=== PATIENT | female | born 1950 | race Caucasian/White ===

== ENCOUNTER 2016-08-19 11:28 | Observation (INO) ==
[2016-08-19] MEDS ORDERED: *HR* FentaNYL (PF) 100 MCG/2 ML VIAL IVP ONE (11:38)
--- NOTE | 2016-08-19 11:46 | Emergency Department Note ---
Disposition Clinical Impression: Hip pain, acute Qualifiers: Laterality: left Qualified Code(s): M25.552 - Pain in left hip Disposition: Admitted As Inpatient Condition: Good General Adult HPI - General Chief complaint: ED Fall Stated complaint: Fall Nursing Notes Reviewed: Yes Vital Signs Reviewed: Yes - History of Present Illness HPI Narrative: Female patient was ventilating on a treadmill whenever she tripped and fell. She states that her left leg went behind her. She is now having sharp pain in her left hip that radiates down to her left foot. Laying still makes the pain somewhat bearable however she is in pain even sitting in bed. She does splint the leg with her knee bent. She denies any loss of consciousness or striking her head. She is also complaining of left upper arm pain due to striking it on the fireplace. - Related Data Home Medications Medication Instructions Recorded Confirmed Atenolol [Tenormin] 25 mg PO DAILY 03/03/16 03/03/16 Colesevelam HCl [Welchol] 625 mg PO 1-2XD 03/03/16 03/03/16 Farxiga 5 mg PO DAILY 03/03/16 03/03/16 Fenofibrate [Fenofibrate] 200 mg PO DAILY 03/03/16 03/03/16 Gabapentin [Neurontin] 300 mg PO 2-4XD 03/03/16 03/03/16 Glimepiride [Amaryl] 4 mg PO DAILY 03/03/16 03/03/16 Lansoprazole [Prevacid] 30 mg PO DAILY 03/03/16 03/03/16 Allergies Allergy/AdvReac Type Severity Reaction Status Date / Time etodolac [From Lodine] Allergy Hives Verified 03/03/16 20:10 dulaglutide [From Trulicity] AdvReac "Pancreatit Verified 08/19/16 15:02 is" Review of Systems: Patient denies any recent illnesses or syncope. She denies any headaches or head trauma. She denies any neck pain or back pain. She is reporting left hip pain. She also reports left upper arm pain. She does report a fall today. She does not have a history of falls. She denies any shortness of breath or chest pain. She denies any abdominal pain nausea vomiting or diarrhea. She denies any urinary symptoms hematochezia melena or hematuria. She denies any swelling to any of her extremities. She denies any numbness or tingling to any of her extremities. All systems ED: reviewed and negative except as stated. Past Medical History - Past Medical History Attestation: Yes The following information was validated with the patient. Medical history: Reports: diabetes, hyperlipidemia, hypertension Surgical history: Reports: cholecystectomy, hysterectomy, sinus surgery Psychiatric history: Reports: no psych history ASSEMBLY MANAGER history: Reports: non-contributory - Social History Smoking Status: Never smoker Alcohol use: Reports: none Drug use: Reports: none Physical Exam - General Limitations: no limitations General appearance: alert, other (Patient appears in pain.) - Head Head exam: atraumatic, normocephalic, normal inspection - Eye Eye exam: Present: normal appearance, PERRL, EOMI. Absent: scleral icterus - ENT ENT exam: normal exam, normal oropharynx, mucous membranes moist - Neck Neck exam: Present: normal inspection, full ROM, trachea midline. Absent: tenderness (No tenderness on palpation or movement.) - Chest Chest inspection: Present: normal inspection, symmetric chest wall rise. Absent : tenderness, rash - Respiratory Respiratory exam: Present: normal lung sounds bilaterally. Absent: respiratory distress - Cardiovascular Cardiovascular exam: Present: regular rate, normal rhythm, normal heart sounds - Abdominal Exam Abdominal exam: Present: soft, Non-Tender, normal bowel sounds. Absent: tenderness, distention, guarding, rebound, rigidity, organomegaly - Expanded Upper Extremity Exam Shoulder exam: Present: normal inspection, full ROM Arm exam: Present: normal inspection, full ROM, ecchymosis (To inner left humerus.) Elbow exam: Present: normal inspection, full ROM Forearm/Wrist exam: Present: normal inspection, full ROM Hand exam: Present: normal inspection, full ROM Vascular exam: Normal: capillary refill, radial pulse - Expanded Lower Extremity Exam Hip/Pelvis exam: Present: normal inspection, full ROM Upper leg exam: Present: normal inspection, full ROM Knee exam: Present: normal inspection, full ROM Lower leg exam: Present: normal inspection, full ROM Ankle exam: Present: normal inspection, full ROM Foot/toe exam: Present: normal inspection, full ROM Neurovascular/Tendon exam: Present: normal capillary refill. Absent: pulse deficit, motor deficit, sensory deficit, tendon deficit Course Course Narrative: The patient was on a treadmill today. She states that her foot hit the side of the treadmill and she fell backwards. She denies striking her head. She denies any neck or back pain. She does report left hip pain. She holds it in a flexed position for comfort. She states the pain goes from her hip and shoots down to her leg. She denies any neck or back pain. There is no obvious deformity to her left hip. There is no shortening appreciated however patient is keeping her leg flexed and this is hard to examine.. Pedal pulses are present bilateral leg do not appreciate any bruising or deformity to her left hip or leg. She does have some bruising to the medial aspect of her left humerus area. Her left hip and left humerus x-ray were read as normal. However her left hip did have some shadowing on the femoral condyle. We subsequently CT her left hip and femur. These were normal. Patient is requesting minimal pain medication. Patient is mentating appropriately. - Reevaluation(s) Reevaluation #1: Patient's CT and x-ray showed no acute fracture. She is still complaining of pain in her left hip. We will get her up and a bili throughout the emergency department. Time: 13:56 Reevaluation #2: Patient reevaluated. We attempted to stand patient. She states that she is in too much pain trying to extend her hip. It appears that the pain is more in the piriformis area. She states that it radiates down the back of her leg. I will order Flexeril and attempt to relieve this muscle spasm. Time: 14:05 Reevaluation #3: Patient still in pain after 2 doses of narcotic pain medication and Flexeril. She is unable to extend her hip. We will admit patient for inability to extend her leg nonmobile. - Consultations Consultation #1: Dr. Ulloa admitted patient in stable condition. She requested for CBC and BMP. I have ordered this. Time: 14:45 Vital Signs Temperature 97.7 F 08/19/16 11:29 Pulse Rate 73 08/19/16 11:29 Respiratory Rate 18 08/19/16 11:29 Blood Pressure 141/75 08/19/16 11:29 O2 Sat by Pulse Oximetry 92 L 08/19/16 11:29 Temperature 97.4 F L 08/19/16 15:27 Pulse Rate 74 08/19/16 15:27 Respiratory Rate 14 08/19/16 15:27 Blood Pressure 110/63 08/19/16 15:27 O2 Sat by Pulse Oximetry 93 L 08/19/16 15:27 Oxygen Delivery Oxygen Delivery Room Air Medical Decision Making - Radiology Data Radiology results reviewed: Yes I reviewed the patient's radiology results. Attestation Statement - Attestation Attestation: I examined this patient and my medical decision-making was reviewed with the SOLE LEATHER CUTTING MACHINE OPERATOR/PA/Advanced Practice Nurse/Resident Physician. I agree with the documented findings, disposition and treatment plan as described except to the extent set forth below. Patient presents to the emergency department with a chief complaint of left hip pain. He had a fall today while exercising on the treadmill made on her left side. Leg pain left upper arm and pain in the left hip. States it hurts to extend her leg. Denies hitting her head or loss of consciousness. Denies any neck or back pain. No chest or abdominal pain. On examination awake and alert laying in bed in no acute distress. Holding her leg flexed. She has an ecchymotic area in the left upper arm. Plan. Pain control and imaging. The hip is negative. Will check CT.
[2016-08-19] MEDS ORDERED: *HR* FentaNYL (PF) 100 MCG/2 ML VIAL IV ONE (13:04)
[2016-08-19 15:55] LABS: Basophils # 0.1 K/mcL (0.0-0.2); Basophils % 0.7 %; Eosinophils # 0.1 K/mcL (0.0-0.6); Eosinophils % 1.7 %; Hematocrit 42.2 % (35.3-44.9); Hemoglobin 13.5 g/dL (11.5-15.4); Immature Granulocytes % 0.2 % (0-4); Lymphocytes # 1.3 K/mcL (0.6-4.6); Lymphocytes % 16.1 %; Mean Corpuscular Hemoglobin 25.4 pg (28.0-33.3); Mean Corpuscular Volume 79.3 fL (83.0-100.0); Mean Platelet Volume 10.2 fL (9.4-12.4); Monocytes # 0.5 K/mcL (0.0-1.3); Monocytes % 6.5 %; Neutrophils # 6.1 K/mcL (1.6-8.9); Platelet Count 292 K/mcL (140-400); Red Blood Count 5.32 M/mcL (3.82-4.97); Red Cell Distribution Width 17.9 % (11.5-14.5); Segmented Neutrophils % 74.8 %
[2016-08-19 16:07] LABS: Calcium 9.3 mg/dL (8.6-10.8); Potassium 3.9 mEq/L (3.5-4.5)
[2016-08-19] MEDS ORDERED: *HR* HYDROmorphone (PF) 1 MG/ML SYRINGE IVP PRN ×3 (16:23→22:31)
[2016-08-19] MEDS ORDERED: Acetaminophen 325 MG TABLET PO PRN (20:59)
[2016-08-19] MEDS ORDERED: Mag Hydrox/Al Hydrox/Simeth 30 ML UDC PO PRN (20:59)
[2016-08-19] MEDS ORDERED: Naloxone 0.4 MG/ML INJ IVP PRN (20:59)
[2016-08-19] MEDS ORDERED: *HR* HYDROcodone/Acet 5/325 mg TABLET PO PRN (20:59)
[2016-08-19] MEDS ORDERED: Ondansetron 4 MG/2 ML VIAL IVP PRN (20:59)
[2016-08-19] MEDS ORDERED: MOM Conc 10 ML UD.LIQ PO PRN (20:59)
[2016-08-19] MEDS ORDERED: *HR* Dextrose 50 % in Water (Syg) 50 ML SYRINGE IVP PRN (21:04)
[2016-08-19] MEDS ORDERED: D5% in Water 1,000 ML IV PRN (21:04)
[2016-08-19] MEDS ORDERED: Dextrose Gel 15 GM PO PRN ×2 (21:04)
--- NOTE | 2016-08-19 21:10 | Internal Med History&Physical ---
Date of Encounter: 08/19/16 Time of Encounter: 20:40 Assessment and Plan (1) Hip pain, acute Current visit: Yes Status: Acute Pt fell from treadmill tonight injuring L groin and L post leg and buttock. Pt is unable to bear weight or extend leg. L hip CT and all xrays negative for fracture of dislocation. Ice Pain medication/muscle relaxers MRI Qualifiers: Laterality: left Qualified Code(s): M25.552 - Pain in left hip (2) Diabetes mellitus Current visit: Yes Status: Acute A1c 6.9% 3 mos ago. Sliding scale insulin Stop home PO anti diabetic medications Diabetic diet accucheck achs A1c in a.m. Qualifiers: Diabetes mellitus type: type 2 Diabetes mellitus complication status: with kidney complications Diabetes mellitus complication detail: with chronic kidney disease Diabetes mellitus penitentiary insulin use: without inside steward/stewardess use Chronic kidney disease stage: stage 3 (moderate) Qualified Code(s): E11.22 - Type 2 diabetes mellitus with diabetic chronic kidney disease; N18.3 - Chronic kidney disease, stage 3 (moderate) (3) GERD (gastroesophageal reflux disease) Current visit: Yes Status: Acute Well controlled. Omeprazole 20mg po daily. Qualifiers: Esophagitis presence: without esophagitis Qualified Code(s): K21.9 - Gastro -esophageal reflux disease without esophagitis (4) CKD (chronic kidney disease) stage 3, GFR 30-59 ml/min Current visit: Yes Status: Acute GFR 44, Creatinine 1.23. Avoid nephrotoxins and NSAIDs. Pt sees Dr. Penaloza. Review labs in a.m. (5) HTN (hypertension) Current visit: Yes Status: Acute BP well controlled. Continue home medications. Qualifiers: Hypertension type: essential hypertension Qualified Code(s): I10 - Essential (primary) hypertension Internal Medicine - H&P: HPI Chief complaint: fall tonight, intractable L leg pain Admitted From: Home Plans for Post Hospital Care: Home History of present illness: Ms. Williamson is a 65 year old female with history of DM, HTN, and GERD who presents to ED after falling off her treadmill tonight at home. Pt states that her L leg hyperextended behind her so she was briefly doing the splits, she fell off and hit her arm on her fireplace. Bruise to medial L upper arm. No lacerations or abrasions. Pt has no deformity or bruising to LLE. Pain orginates in L buttock and radiates down L post leg into lateral calf. Pt cannot bear weight and and keeps her L leg flexed toward body. She has gotten no relief from any medication and pain is only relieved by lying still. Past Med Surg Social Fam HX - Past Medical History Medical history: diabetes, hyperlipidemia, hypertension Psychiatric history: no psych history - Past Surgical History Surgical History: cholecystectomy, hysterectomy, sinus surgery - Social History Smoking Status: Never smoker Smokeless Tobacco Status: No Alcohol use: none Drug use: none - Family History Mother Living Status: Hx Family Cardiac Disorders: Yes Hx Family Neurologic Disorders: Yes Internal Medicine - H&P: Meds Atenolol [Tenormin] 25 mg PO DAILY 03/03/16 [History] Colesevelam HCl [Welchol] 625 mg PO DAILY 03/03/16 [History] Dapagliflozin Propanediol [Farxiga] 5 mg PO DAILY 03/03/16 [History] Fenofibrate [Fenofibrate] 200 mg PO DAILY 03/03/16 [History] Gabapentin [Neurontin] 300 mg PO QID 03/03/16 [History] Glimepiride [Amaryl] 4 mg PO DAILY 03/03/16 [History] Lansoprazole [Prevacid] 30 mg PO DAILY 03/03/16 [History] Allergies etodolac [From Lodine] Allergy (Verified 03/03/16 20:10) Hives dulaglutide [From Trulicity] Adverse Reaction (Verified 08/19/16 15:02) "Pancreatitis" All Systems PM: A 10-system review of systems was performed and is negative for pertinent findings except as documented above in the HPI. - Constitutional Constitutional: falls - Cardiovascular Cardiovascular ROS IM: no chest pain, no dyspnea, no lightheadedness, no palpitations - Respiratory Respiratory: no cough, no dyspnea on exertion - Gastrointestinal Gastrointestinal: no constipation, no diarrhea, no nausea, no vomiting - Musculoskeletal Musculoskeletal ROS IM: limited range of motion, myalgias, no back pain, no deformity - Integumentary Additional comments: bruising to LUE witha fall. - Neurological Neurological ROS: no headache(s) Additional comments: denies hitting head, no LOC - Endocrine Endocrine IM: no polyphagia, no polyuria - Constitutional Vitals: Temp Pulse Resp BP Pulse Ox 97.7 F 85 14 128/75 93 L 08/19/16 19:49 08/19/16 19:49 08/19/16 19:49 08/19/16 19:49 08/19/16 19:49 General appearance: Present: cooperative, A&O X 3, pleasant Exam: moderate distress, pain - Head Head exam: Present: atraumatic, normal inspection - Eye Eye exam: Present: normal appearance - ENT ENT exam: Present: mucous membranes moist, normal exam - Neck Neck exam general surgery: Absent: lymphadenopathy, tenderness - Respiratory Respiratory exam: Present: CTAB. Absent: chest wall tenderness - Cardiovascular Cardiovascular exam: Present: RRR, +S1, +S2 - GI/Abdominal GI/Abdominal exam: Present: soft. Absent: tenderness - Extremities Exam Extremities exam: Present: normal capillary refill, tenderness, warm, radial pulses palpable and symetrical. Absent: full ROM, normal inspection, pedal edema Additional comments: No deformities, abrasions or bruising to LLE. Pt c/o tenderness in L groin and severe, stabbing pain in L buttock with radiation to LLE. - Expanded Lower Extremities Exam Hip exam: Present: tenderness Upper Leg exam: Absent: full ROM - Neurological Exam Neurological exam: Present: alert, oriented X3, no focal deficits Internal Med - H&P Results - Labs CBC & Chem 7: 08/19/16 15:43 08/19/16 15:43 Labs: Short CBC 08/19/16 Range/Units 15:43 WBC 8.2 (4.3-11.1) K/mcL Hgb 13.5 (11.5-15.4) g/dL Hct 42.2 (35.3-44.9) % Plt Count 292 (140-400) K/mcL Neutrophils # 6.1 (1.6-8.9) K/mcL BMP 08/19/16 15:43 Sodium 141 Potassium 3.9 Chloride 110 H Carbon Dioxide 21 BUN 17 Creatinine 1.23 H Glucose 107 H Calcium 9.3
[2016-08-19] MEDS ORDERED: *HR* OxyCODONE/APAP 5/325 TABLET PO PRN (21:20)
[2016-08-19 22:09] LABS: Hemoglobin A1C 7.2 %
[2016-08-19] MEDS: Fenofibrate 54 MG TABLET PO SCH (22:46)
[2016-08-19] MEDS: Gabapentin 300 MG CAPSULE PO SCH (22:46)
[2016-08-19] MEDS: Insulin LISPRO 300 UNITS/3 ML VIAL SQ SCH (22:47)
[2016-08-20] MEDS: Insulin LISPRO 300 UNITS/3 ML VIAL SQ SCH ×4 (08:51→20:43)
[2016-08-20] MEDS: Fenofibrate 54 MG TABLET PO SCH (08:53)
[2016-08-20] MEDS: Gabapentin 300 MG CAPSULE PO SCH ×4 (08:53→20:40)
[2016-08-20] MEDS ORDERED: Fenofibrate 54 MG TABLET PO SCH ×2 (09:00→21:51)
[2016-08-20] MEDS ORDERED: Gabapentin 300 MG CAPSULE PO SCH ×2 (09:00→21:52)
[2016-08-20] MEDS: *HR* OxyCODONE/APAP 5/325 TABLET PO PRN ×3 (09:48→20:47)
--- NOTE | 2016-08-20 13:12 | Internal Med Progress Note ---
<Jewel Erickson - Last Filed: 08/20/16 13:08> Date of Encounter: 08/20/16 Time of Encounter: 08:00 - Assessment and plan (1) Hamstring tear Current Visit: Yes Status: Acute Assessment and plan: discussed with radiology. Not full visualized but likely a complete or near complete tear. I discussed with Dr. Hall. Will put her in a knee immobilizer and walker. She will be fitted for immobilizer late this afternoon. We will cotninue to control her pain. Follow up H/H in the AM. She will follow up with Dr. Hall in his office in one week. (2) CKD (chronic kidney disease) stage 3, GFR 30-59 ml/min Current Visit: Yes Status: Acute Assessment and plan: stable at baseline avoid nephrotoxins. (3) Diabetes mellitus Current Visit: Yes Status: Acute Assessment and plan: continue sliding scale insulin Qualifiers: Diabetes mellitus type: type 2 Diabetes mellitus complication status: with kidney complications Diabetes mellitus complication detail: with chronic kidney disease Diabetes mellitus intermediate accountant insulin use: without usp use Chronic kidney disease stage: stage 3 (moderate) Qualified Code(s): E11.22 - Type 2 diabetes mellitus with diabetic chronic kidney disease; N18.3 - Chronic kidney disease, stage 3 (moderate) (4) HTN (hypertension) Current Visit: Yes Status: Acute Assessment and plan: continue home medications. Qualifiers: Hypertension type: essential hypertension Qualified Code(s): I10 - Essential (primary) hypertension - Subjective Interval history: Reviewed all labs, vitals and documentation since admission. Of note the MRI of the sacrum and coccyx revewals a hamstring tear. Today the patients states that her pain is well controlled. However when attempts to stand or to move extend her knee fully she has extreme pain. She denies any pain in the knee or ankle. It was a mechanical fall off of her treadmill. She did not hit her head. she has no further complaints or concerns at this time. - Constitutional Vitals: Temp Pulse Resp BP Pulse Ox 97.9 F 81 16 130/80 92 L 08/20/16 12:57 08/20/16 12:57 08/20/16 12:57 08/20/16 12:57 08/20/16 12:57 General appearance: Present: cooperative, A&O X 3, pleasant - Head Head exam: Present: atraumatic, normocephalic - Eye Eye exam: Present: PERRL, conjuntiva pink, sclera anicteric Pupils: Present: PERRL - Neck Neck exam general surgery: Present: supple, trachea midline. Absent: lymphadenopathy - Respiratory Respiratory exam: Present: CTAB. Absent: accessory muscle use, rales, rhonchi, wheezes - Cardiovascular Cardiovascular exam: Present: RRR, +S1, +S2. Absent: diastolic murmur, gallop, rubs, systolic murmur - GI/Abdominal GI/Abdominal exam: Present: normal bowel sounds, soft, no peritoneal signs. Absent: distended, tenderness - Extremities Exam Extremities exam: Present: warm, radial pulses palpable and symetrical. Absent : calf tenderness, cyanotic, pedal edema Additional comments: The left thigh is very tender ove rthe region of the trochanter. Seh also has what feels like a mass in the mid thigh. Normal sensation of the the foot. no pain with palpation of the ankle knee or leg. - Skin Skin exam: Present: dry, intact Internal Medicine: Result - Labs CBC & Chem 7: 08/19/16 15:43 08/19/16 15:43 Labs: Short CBC 08/19/16 Range/Units 15:43 WBC 8.2 (4.3-11.1) K/mcL Hgb 13.5 (11.5-15.4) g/dL Hct 42.2 (35.3-44.9) % Plt Count 292 (140-400) K/mcL Neutrophils # 6.1 (1.6-8.9) K/mcL BMP 08/19/16 15:43 Sodium 141 Potassium 3.9 Chloride 110 H Carbon Dioxide 21 BUN 17 Creatinine 1.23 H Glucose 107 H Calcium 9.3 - Impressions Impressions Sacrum/Coccyx MRI 08/19/16 21:22 IMPRESSION: Unremarkable examination of the sacrum and SI joints. Findings suggesting a partial-thickness to full-thickness acute tear of the common hamstring tendon origin from the left ischial tuberosity. This is not completely included in the field of view of this examination and is incompletely evaluated. D/ / 08/20/2016 08:08:00 Horace Kuhn MD / wilda Interpreting Provider: Horace Kuhn MD Consult Discharge Plan - Plan Referrals: NO,PCP [Non-Partnered Physician] - <Sidney Smith H - Last Filed: 08/20/16 14:41> Date of Encounter: 08/20/16 - Constitutional Vitals: Temp Pulse Resp BP Pulse Ox 97.9 F 81 16 130/80 92 L 08/20/16 12:57 08/20/16 12:57 08/20/16 12:57 08/20/16 12:57 08/20/16 12:57 Internal Medicine: Result - Labs CBC & Chem 7: 08/19/16 15:43 08/19/16 15:43 Labs: Short CBC 08/19/16 Range/Units 15:43 WBC 8.2 (4.3-11.1) K/mcL Hgb 13.5 (11.5-15.4) g/dL Hct 42.2 (35.3-44.9) % Plt Count 292 (140-400) K/mcL Neutrophils # 6.1 (1.6-8.9) K/mcL BMP 08/19/16 15:43 Sodium 141 Potassium 3.9 Chloride 110 H Carbon Dioxide 21 BUN 17 Creatinine 1.23 H Glucose 107 H Calcium 9.3 - Impressions Impressions Sacrum/Coccyx MRI 08/19/16 21:22 IMPRESSION: Unremarkable examination of the sacrum and SI joints. Findings suggesting a partial-thickness to full-thickness acute tear of the common hamstring tendon origin from the left ischial tuberosity. This is not completely included in the field of view of this examination and is incompletely evaluated. D/ / 08/20/2016 08:08:00 MD Lis Zapata Interpreting Provider: Horace Kuhn MD - Attending Attestation may be discharged in the morning if pain is well controlled I examined this patient and my medical decision-making was reviewed with the GRADES 1 6 TUTOR/PA/Advanced Practice Nurse/Resident Physician. I agree with the documented findings, disposition and treatment plan as described except to the extent set forth below.
[2016-08-20] MEDS ORDERED: Insulin LISPRO 300 UNITS/3 ML VIAL SQ SCH ×2 (21:00→21:52)
[2016-08-21] MEDS: *HR* OxyCODONE/APAP 5/325 TABLET PO PRN ×2 (02:01→06:34)
--- NOTE | 2016-08-21 06:44 | Discharge Summary ---
<Jewel Erickson - Last Filed: 08/21/16 07:32> Date of Encounter: 08/21/16 Time of Encounter: 06:40 - Discharge Diagnosis (1) Hamstring tear Priority: Primary Status: Acute (2) CKD (chronic kidney disease) stage 3, GFR 30-59 ml/min Priority: Secondary Status: Acute (3) Diabetes mellitus Priority: Secondary Status: Acute Qualifiers: Diabetes mellitus type: type 2 Diabetes mellitus complication status: with kidney complications Diabetes mellitus complication detail: with chronic kidney disease Diabetes mellitus middle or intermediate school principal insulin use: without middle or intermediate school principal use Chronic kidney disease stage: stage 3 (moderate) Qualified Code(s): E11.22 - Type 2 diabetes mellitus with diabetic chronic kidney disease; N18.3 - Chronic kidney disease, stage 3 (moderate) (4) HTN (hypertension) Priority: Secondary Status: Acute Qualifiers: Hypertension type: essential hypertension Qualified Code(s): I10 - Essential (primary) hypertension - Discharge Medications Prescriptions: OxyCODONE/APAP 5/325 [Percocet 5/325 MG] 1 each PO Q6H PRN #40 tablet PRN Reason: Moderate Pain Home Medications: Atenolol [Tenormin] 25 mg PO DAILY 03/03/16 [History] Colesevelam HCl [Welchol] 625 mg PO DAILY 03/03/16 [History] Dapagliflozin Propanediol [Farxiga] 5 mg PO DAILY 03/03/16 [History] Fenofibrate 200 mg PO DAILY 03/03/16 [History] Gabapentin [Neurontin] 300 mg PO QID 03/03/16 [History] Glimepiride [Amaryl] 4 mg PO DAILY 03/03/16 [History] Lansoprazole [Prevacid] 30 mg PO DAILY 03/03/16 [History] Docusate [Colace] 100 mg PO BID PRN #0 capsule 08/21/16 [Rx] OxyCODONE/APAP 5/325 [Percocet 5/325 MG] 1 each PO Q6H PRN #40 tablet 08/21/16 [ Rx] Allergies/Adverse Reactions: Allergies etodolac [From Lodine] Allergy (Verified 03/03/16 20:10) Hives dulaglutide [From Trulicity] Adverse Reaction (Verified 08/19/16 15:02) "Pancreatitis" Procedures/tests Complete & Pending: Procedures Performed prior 72 hours Category Date Time Status MR sacrum cesar betancur [MR] Routine MRI 08/19/16 21:22 Draft Date of admission: 08/19/16 14:48 Primary care physician: Sergio Keller MD Discharging clinician: Jewel Erickson Anticipated date of discharge: 08/21/16 - Patient Status Disposition: Home, Self-Care Condition: Good Functional capacity at discharge: uses cane/walker Overall status at discharge: patient is progressing back to baseline - Discharge Instructions Follow Up With: NO,PCP [Non-Partnered Physician] - Additional Instructions: Take medications as prescribed. Take pain medications only as needed. Do not take with alcohol. Wear knee immobilizer at all times while ambulating. use walker when ambulating. Please follow up with Dr. Hall in one weeks time. Please follow up with your PCP in 1-2 weeks. - Diet and Activity Activity: ambulate only with your walker Diet: diabetic diet Hospital course: Ms. Williamson is a 65 year old female who was admitted after a mechanical fall on a treadmill. MRI revealed a torn hamstring. However the tobin did not visualize fully the hamstring. I spoke with the radiologist whose opinionin was that it was most likely a complete or near complete tear. I also spoke with Dr. Hall in Orthopedic surgery. he did not recommend further imaging and recommneded a knee imobilizer and a walker and to follow up with him in one weeks time. The patients vital signs are within normal limits. We will discharge her with the medical equipment as well. As well as 10 day supply of percocet until she can make her appointment. I have counceled her to take this only as needed. She has voiced back understanding and agreement to this plan. - Time Spent with Patient Total time spent providing and/or coordinating discharge services: Greater than 30 minutes (Approximately 36 minutes were spent with the patient and preparing her discharge.) - Constitutional Vitals: Temp Pulse Resp BP Pulse Ox 98.1 F 79 16 110/65 92 L 08/20/16 23:26 08/20/16 23:26 08/20/16 23:26 08/20/16 23:26 08/20/16 23:26 General appearance: Present: cooperative, A&O X 3, pleasant - Head Head exam: Present: atraumatic, normocephalic - Eye Eye exam: Present: PERRL, conjuntiva pink, sclera anicteric Pupils: Present: PERRL - Neck Neck exam general surgery: Present: supple, trachea midline. Absent: lymphadenopathy - Respiratory Respiratory exam: Present: CTAB. Absent: accessory muscle use, rales, rhonchi, wheezes - Cardiovascular Cardiovascular exam: Present: RRR, +S1, +S2. Absent: diastolic murmur, gallop, rubs, systolic murmur - GI/Abdominal GI/Abdominal exam: Present: normal bowel sounds, soft, no peritoneal signs. Absent: distended, tenderness - Extremities Exam Extremities exam: Present: warm, radial pulses palpable and symetrical. Absent : calf tenderness, cyanotic, pedal edema Additional comments: Left leg in knee immobilizer. Foot is warm. palpable pulses. - Skin Skin exam: Present: dry, intact <Sidney Smith H - Last Filed: 08/21/16 07:50> Date of Encounter: 08/21/16 Procedures/tests Complete & Pending: Procedures Performed prior 72 hours Category Date Time Status MR sacrum wo con [MR] Routine MRI 08/19/16 21:22 Draft Date of admission: 08/19/16 14:48 Primary care physician: Sergio Keller MD Consults: 08/21/16 07:48 Consult to Physical Therapy [CONS] Stat Comment: Evaluate, develop and implement POC Hospital course: Ms. Williamson is a 65 year old female - Time Spent with Patient Total time spent providing and/or coordinating discharge services: - Constitutional Vitals: Temp Pulse Resp BP Pulse Ox 99.1 F 98 14 108/71 93 L 08/21/16 06:58 08/21/16 06:58 08/21/16 06:58 08/21/16 06:58 08/21/16 06:58 - Attending Attestation will be evaluated by PT prior to being discharged. Follow Dr Hall's recommendations I examined this patient and my medical decision-making was reviewed with the SKIP OPERATOR/PA/Advanced Practice Nurse/Resident Physician. I agree with the documented findings, disposition and treatment plan as described except to the extent set forth below.
[2016-08-21 06:59] VITALS: BP 108/71
[2016-08-21] MEDS: Fenofibrate 54 MG TABLET PO SCH (09:00)
[2016-08-21] MEDS: Gabapentin 300 MG CAPSULE PO SCH (09:00)
[2016-08-21] MEDS: Insulin LISPRO 300 UNITS/3 ML VIAL SQ SCH (09:00)
== END 2016-08-21 11:22 | disposition home or self-care (01) ==
LOC: EMEROO 11:28 → 3BNU 11:28 → SUATTDRO 14:48 → 3BNU 15:20
PROVIDERS: ADMIT Registered Nurse; ATTEND Internal Medicine